=== PATIENT | male | born 1965 | race Caucasian/White ===

== ENCOUNTER 2016-10-04 05:31 | Observation (INO) | payer OTHER ==
[~2016-10-04] VITALS: Ht 177.8 cm; Wt 84.6 kg
--- NOTE | ~2016-10-04 | O ---
[facility] [place] [address] OPERATIVE REPORT Name: SHAHID SIMMONS III Room #: 539-P [facility] Roque Serrano#: [id number] Admission: 10/04/16 Attend Phys: Leno Hayward MD Discharge: 10/05/16 Date of : 63 Report #: [id number] THIS REPORT FOR: //name// CC: Leno Ramos PREOPERATIVE DIAGNOSIS: Incisional hernia. POSTOPERATIVE DIAGNOSIS: Incisional hernia. PROCEDURE PERFORMED: Laparoscopic repair of incisional hernia. ANESTHESIA: General. COMPLICATIONS: None. ESTIMATED BLOOD LOSS: 5 mL. DESCRIPTION OF PROCEDURE: The patient's abdomen was prepped and draped in sterile fashion. IV antibiotic was administered. Abdomen was prepped and draped in sterile fashion. Timeout was performed. A cutdown incision was made in the left abdomen slightly above the umbilicus. This is about 2.5 cm incision. Fascia was identified. It was quite deep. The anterior rectus sheath was opened. A 0 Vicryl suture was placed on the fascia for retraction. The muscle was spread. The posterior sheath was grasped with hemostat. This was also opened under visualization. There is some separation to the peritoneum. The posterior sheath was sutured with 0 Vicryl for retraction. Veress needle was then placed through peritoneum. Abdominal cavity was insufflated by CO2. After creating pneumoperitoneum, 11 mm trocar was placed under visualization. This had a balloon on the end. Two 5 mm trocars were placed in the left abdomen, one in the upper quadrant and one in the lower quadrant. The patient had quite a bit of properitoneal fat. Some of them was even hanging down. This actually obscured the view of the hernia. I started along the right of the inferior edge of the falciform ligament, divided the peritoneum and its properitoneal fat off the wall. I got to the umbilical area. The fascia defect was identified. There were 3 large lobulated properitoneal fat within the hernia. The dissection was inferiorly, creating us room for a 4 x 5 inch Ventralight mesh with ST technology. The mesh was moistened with saline and placed through the 11 mm trocar without difficulty. The balloon tubing was brought out in the mid part of the defect. The echo was inflated. The mesh was tuck up to the abdominal wall and the mesh was tacked with SorbaFix. The camera was changed to the 5 mm scope to allow further tacking. The tack was difficult to place on the left side, the near side through the trocar because of the band and the wall and the tacker, due to the thickness of the fat. Because of this, I placed 2 transfascial sutures at 2 and 4 o'clock position. Transfascial suture was placed at 12 o'clock and then also at the 9 o'clock. The patient has infraumbilical and avoided that with any [facility] [address] [place] [address] OPERATIVE REPORT Name: SHAHID SIMMONS [facility] Room #: 539-P BIRDIE Serrano#: [id number] Admission: 10/04/16 Attend Phys: Leno Hayward MD Discharge: 10/05/16 Date of : 63 Report #: [id number] transfascial suture. Mesh seated well. I did try to tack the fat back up. Because of the thickness there, I could not get the SorbaFix to hold it in place. The trocars were then removed. CO2 was evacuated. The fascia defect of the cutdown site was closed with 0 PDS [id number] x 2, both the posterior sheath and the anterior sheath. Skin was irrigated. Skin was closed with 5-0 PDS. Dermabond was applied. Band-Aids applied. The patient tolerated the procedure well and was taken to recovery room. By: 99 Leno Hayward MD /nt
--- NOTE | ~2016-10-04 | EKG ---
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
[~2016-10-04 05:31] MED LIST: CRESTOR10 MG PO; DAILY VITE1 EACH PO; LEVOTHYROXIN0.125 M1 PO; LISINOPRIL10 MG PO; NORVASC5 M1 PO; PERCOCET PO; PHENYTOIN PO; PHENYTOIN SODI200 MG PO; POTASSIUM CITR15 MEQ PO; POTASSIUM CITRATE PO
[2016-10-04 11:52] LABS: CALCIUM 8.9 mg/dL (8.5-10.1); CREATININE 0.8 mg/dL (0.7-1.3); POTASSIUM 4.3 mmol/L (3.5-5.1)
[2016-10-04 12:00] VITALS: BP 134/84
[2016-10-04 16:54] VITALS: BP 128/67
[2016-10-04 20:00] VITALS: BP 135/92
[2016-10-05] VITALS: BP 132/77
[2016-10-05 04:00] VITALS: BP 140/57
[2016-10-05 08:58] VITALS: BP 121/77
[2016-10-05] MEDS ORDERED: NORCO 5-325 TA1 EACH PO (12:02)
[2016-10-05] MEDS ORDERED: VALIUM5 MG PO (12:04)
[2016-10-05 12:33] VITALS: BP 121/77
[2016-10-05 13:32] VITALS: BP 121/77
== END 2016-10-05 13:35 | disposition home or self-care (01) ==
LOC: TBA 05:31 → OR 05:31 → 5S 15:02 → OR 15:02 → 5S 15:02 → OR 15:52 → 5S 10-05 13:35
PROVIDERS: Anesthesiology
DX: K43.2 Incisional hernia without obstruction or gangrene (principal); K80.10 Calculus of gallbladder with chronic cholecystitis without obstruction; I10 Essential (primary) hypertension; E78.00 Pure hypercholesterolemia, unspecified; Z90.49 Acquired absence of other specified parts of digestive tract; Z87.442 Personal history of urinary calculi
CPT/HCPCS: 50010; 50101; 50249; 50411; 50455; 50555; 50687; 50886; 50979; 53307; 53310; 54022; 54118; 56525; 56526; 56530; 62110; 62900; 70005

== ENCOUNTER → 2017-09-02 | Outpatient (CLI) | payer OTHER ==
[~2017-09-02] MED LIST changes: +NORCO 5-325 TA1 EACH PO; +VALIUM5 MG PO
== END ==
LOC: RAD 11:59
DX: R10.9 Unspecified abdominal pain (principal)

== ENCOUNTER → 2017-09-09 | Outpatient (CLI) | payer OTHER | LOC: ULTRA 07:10 | DX: K76.89 Other specified diseases of liver (principal); Z90.49 Acquired absence of other specified parts of digestive tract ==

== ENCOUNTER → 2018-03-17 | Outpatient (CLI) | payer OTHER | LOC: MRI 07:46 | DX: S83.242A Other tear of medial meniscus, current injury, left knee, initial encounter (principal); S83.282A Other tear of lateral meniscus, current injury, left knee, initial encounter; S86.912A Strain of unspecified muscle(s) and tendon(s) at lower leg level, left leg, initial encounter; M25.462 Effusion, left knee; R60.0 Localized edema; X58.XXXA Exposure to other specified factors, initial encounter; Y93.89 Activity, other specified; Y92.89 Other specified places as the place of occurrence of the external cause; Y99.8 Other external cause status ==

== ENCOUNTER 2018-08-27 19:12 | Inpatient (IN) | payer OTHER ==
[~2018-08-27] VITALS: Ht 177.8 cm; Wt 124.7 kg
--- NOTE | ~2018-08-27 | HC ---
[facility] [place] [address] CONSULTATION Name: SHAHID SIMMONS III Room #: 426-P [facility] IN M.R.#: [id number] Admission: 08/27/18 ������������������ Attend Phys: Anderson Murphy MD Discharge: 08/29/18 ������������������ Date of : 63 Report #: [id number] THIS REPORT FOR: //name// CC: Anderson Muñiz DATE OF SERVICE: 08/29/2018 SURGICAL CONSULTATION: REASON FOR CONSULTATION: Diarrhea, followed by abdominal pain, nausea and vomiting. Possible small-bowel obstruction. HISTORY OF PRESENT ILLNESS: The patient is a 53-year-old who did not feel very well last week. The patient had a low-grade temperature of 100.1. The patient on Tuesday started to have a fairly significant diarrhea. Probably went to the bathroom about 7 times. He finally took Imodium which stopped the diarrhea. He then described pain in the upper abdomen, mid abdomen sharp in nature. He did not have any vomiting until he got into the Emergency Room. The patient vomited a large volume of gastric content. The patient is known to me from prior cholecystectomy, repair of a hernia laparoscopically placed under the umbilical area where his incisional hernia was located. He has not had any problems since then. The patient's CT from 10:00 last night and KUB this morning does look like distended small bowel loops, very small, very minimal air in the colon. There is a small bowel that is decompressed distally. No exact transition point identified, but it is likely in the right portion of the abdomen. The patient has a cyst in the liver, which is seen before. LABORATORY DATA: His white count is 6900 with 25 bands. I do not see lactic acid. His bilirubin is still slightly elevated. His creatinine is 1.3. His BUN is slightly elevated at 19, suggestive of dehydration. Since admission, an NG tube that was placed, which had about 300-400 out, he is feeling a lot better. His nurse and I both went into the room to assess him and he has passed a large gas and had a small bowel movement. Since he did not have any air in his colon on his x-ray, I believe the air must have gotten there since admission. On examination, the patient's abdomen is mildly distended. He is quite obese. There is no tenderness, guarding or rigidity. Bowel sounds are present. His incision has healed well. IMPRESSION AND PLAN: The patient is a 53-year-old with a viral type illness. I am not really sure he has a bowel obstruction, possibly the viral illnesses caused the spasm. He is feeling significantly better at this point. I think he [address] [address] CONSULTATION Name: SHAHID SIMMONS III Room #: 426-P [facility] IN M.R.#: [id number] Admission: 08/27/18 ������������������ Attend Phys: Anderson Murphy MD Discharge: 08/29/18 ������������������ Date of : 63 Report #: [id number] is likely getting over this. His white count is staying normal. His hemoglobin does look a little bit lower like consistent rehydration. I would recommend keeping the NG for now since it was just placed a little over 12 hours ago and see how he does the rest of the night and check KUB in the morning. Possibly remove the NG tube if possibly proceeding with discontinuing NG and starting liquid if he feels better. ��������������������������������������������� ���������������������������������������� By: ��������������������������������������������� [id number] Leno Hayward MD /nt
[2018-08-27 19:12] VITALS: BP 139/85
[2018-08-27 20:08] LABS: HEMATOCRIT 42.4 % (42.0-52.0); HEMOGLOBIN 14.9 gm/dL (14.0-18.0); MCH 31.1 pg (26.0-34.0); MCHC 35.2 g/dL (28.0-37.0); MCV 88.2 fL (80.0-100.0); PLATELET COUNT 199 thou/uL (150-400); RBC 4.81 mil/uL (4.50-6.00); RDW 14.1 % (10.5-14.5); WBC 6.9 thou/uL (4.0-11.0)
[2018-08-27 20:14] LABS: ANION GAP 10 mmol/L (7-16); BUN 19 mg/dL (7-18); CHLORIDE 97 mmol/L (98-107); CO2 25 mmol/L (21-32); GLUCOSE 164 mg/dL (74-106); POTASSIUM 3.9 mmol/L (3.5-5.1); SODIUM 132 mmol/L (136-145)
[2018-08-27 20:23] LABS: ALBUMIN 3.7 g/dL (3.4-5.0); LIPASE 58 U/L (73-393); SGOT 27 U/L (15-37); SGPT 43 U/L (30-65); TOTAL BILIRUBIN 1.4 mg/dL (<0.1-1.0); TROPONIN-I <0.06 ng/mL (<0.06)
[2018-08-27 20:30] LABS: ABSOLUTE NEUTROPHILS 4.8 thou/uL (1.4-8.2)
[2018-08-27 20:31] LABS: LARGE PLATELETS FEW; PLATELET ESTIMATE NORMAL
[2018-08-27 20:32] LABS: POLYCHROMASIA 1+
[2018-08-27 22:00] VITALS: BP 146/84
[2018-08-27] MEDS ORDERED: KEPPRA1000 MG PO (22:14)
[2018-08-27 22:17] VITALS: BP 146/84
[2018-08-27 22:26] LABS: URINE BILIRUBIN NEGATIVE (Negative); URINE BLOOD NEGATIVE (Negative); URINE CLARITY CLEAR; URINE COLOR YELLOW; URINE GLUCOSE-RANDOM* NEGATIVE (Negative); URINE KETONES TRACE (Negative); URINE LEUKOCYTES-REFLEX NEGATIVE (Negative); URINE NITRITE-REFLEX NEGATIVE (Negative); URINE PROTEIN (DIPSTICK) 1+ (Negative); URINE SPECIFIC GRAVITY 1.025 (1.005-1.035)
[2018-08-27 22:39] LABS: BACTERIA-REFLEX 1-9 Few /HPF (None Seen); CASTS None Seen /LPF (None Seen); CRYSTALS None Seen /LPF (None Seen); MUCUS 4-6 Moderate strn/LPF (None Seen); SQUAMOUS 0-3 Few /LPF (0-3); URINE RBC 0-2 Rare /HPF (0-2); URINE WBC-REFLEX 0-5 Rare /HPF (0-5)
[2018-08-27 22:49] VITALS: BP 138/74
[2018-08-28 05:21] VITALS: BP 147/75
[2018-08-28 05:24] LABS: HEMATOCRIT 39.5 % (42.0-52.0); HEMOGLOBIN 13.9 gm/dL (14.0-18.0); MCH 30.9 pg (26.0-34.0); MCHC 35.3 g/dL (28.0-37.0); MCV 87.5 fL (80.0-100.0); PLATELET COUNT 190 thou/uL (150-400); RBC 4.51 mil/uL (4.50-6.00); RDW 14.1 % (10.5-14.5); WBC 5.6 thou/uL (4.0-11.0)
[2018-08-28 05:27] LABS: CALCIUM 8.4 mg/dL (8.5-10.1); CREATININE 0.9 mg/dL (0.7-1.3); POTASSIUM 3.7 mmol/L (3.5-5.1)
[2018-08-28 06:09] LABS: ABSOLUTE NEUTROPHILS 3.4 thou/uL (1.4-8.2); PLATELET ESTIMATE NORMAL
[2018-08-28 06:10] LABS: ANISOCYTOSIS 1+; LARGE PLATELETS FEW; POLYCHROMASIA 1+
--- NOTE | 2018-08-28 06:42 | NUR ---
Arrived from ER around 0. C/o pain in abdomen, pain medication given and worked. Patient vomitted twice, yellow and dark yellow color. Patient voiced that he felt better after the vomitting. NG inserted, patient hopes to get the tube out in the morning. NPO, tolerated well.
--- NOTE | 2018-08-28 08:12 | NUR ---
PT ASSESSED. DENIES ABD PAIN OR NAUSEA. NG IRRIGATED W/ DARK GREEN OUTPUT W/ SEDIMENT. DR. ROBBINS CONSULTED MR. SIMMONS IS FORMER PT. RESTING COMFORTABLY.
[2018-08-28 08:28] VITALS: BP 135/81
--- NOTE | 2018-08-28 09:05 | EKG ---
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 : 1965 Requested By: Florian Klein Order Number: [id number] MD: Rizwan Landaverde Measurements Intervals [place] Rate: 82 P: 34 WI: 142 QRS: 53 QRSD: 103 T: 22 QT: 366 QTc: 428 Interpretive Statements Sinus rhythm No significant abnormality Compared to ECG 10/04/2016 11:56:23 No significant changes Electronically Signed On 08-28-2018 9:05:05 CDT by Rizwan Landaverde [email or web address] ��������������������������������������������� <ELECTRONICALLY SIGNED> ���������������������������������������� By: Rizwan Landaverde MD, [facility] ��������������������������������������������� 08/28/18904 18 18 Rizwan Landaverde MD, FAC /EPI
[2018-08-28 16:36] VITALS: BP 134/64
--- NOTE | 2018-08-28 17:18 | NUR ---
PT ADMITTED RELATED TO SBO. CM REVIEWED CHART AND SPOKE WITH CARE TEAM. CM MET WITH PT AT BEDSIDE THIS DAY. PT IS A&O X4. CM ROLE INTRODUCED. PT INDICATED HE LIVES IN A HOUSE WITH 2 STEPS TO ENTER AND NO STEPS HE USES INSIDE. 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 PT INDICATED NO DME OR HH HX. PT INDICATED HE PLANS TO RETURN HOME ONCE MEDICALLY STABLE. CM TO FOLLOW INDICATED WITH DC PLANNING.
--- NOTE | 2018-08-28 18:30 | NUR ---
PT ASSESSED AT START OF SHIFT. NG IRRIGATED W/ LARGE AMTS OF DARK GREEN OUTPUT W/ SEDIMENT. ABD DISTENDED BUT SOFT. PT STARTED PASSING FLATUS EARLY AM AND THROUGHOUT THE DAY AND HAD SEVERAL LOOSE BM'S. DR. ROBBINS HERE THIS AFTERNOON AND UPDATED W/ EVENTS. PT ALLOWED TO EAT ICE CHIPS SOME. WILL HAVE REPEAT ABD XRAY IN THE AM. PT AMBULATING HALLS AND DOING WELL.
[2018-08-28 19:38] VITALS: BP 150/83
[2018-08-29] VITALS: BP 134/72
--- NOTE | 2018-08-29 02:01 | NUR ---
Assume care of pt at 1900. Pt alert and oriented x4. NG tube in place at start of shift. Connected to low intermittent suction and irrigated. Pt accidentally pulled out NG tube in his sleep. INSURANCE AND BENEFITS CLERK on duty notified. States to keep NG out and wait for results of abd xray/KUB in am. Pt passing gas. Up ad bria. No c/o pain. Call light within reach. Will continue to monitor and assist with needs.
[2018-08-29 05:05] VITALS: BP 134/72; BP 197/95
[2018-08-29 05:55] VITALS: BP 134/84
[2018-08-29 06:19] LABS: HEMATOCRIT 37.6 % (42.0-52.0); HEMOGLOBIN 12.9 gm/dL (14.0-18.0); MCH 30.6 pg (26.0-34.0); MCHC 34.4 g/dL (28.0-37.0); RBC 4.22 mil/uL (4.50-6.00); WBC 6.1 thou/uL (4.0-11.0)
[2018-08-29 06:38] LABS: CALCIUM 8.4 mg/dL (8.5-10.1); CREATININE 1.1 mg/dL (0.7-1.3); POTASSIUM 3.7 mmol/L (3.5-5.1)
[2018-08-29 08:15] VITALS: BP 120/71
--- NOTE | 2018-08-29 11:41 | NUR ---
Assumed pt care at 7am.Pt up adlib in the room and hallways with steady gait. Assessment completed.vss.Pt has bm early this shift and wanted to know if he can eat.Rn told pt it will be up to Dr Hayward when he rounded on pt later today. kub done and it still shows sbo.Dr Jeffrey Hayward here,order noted.Clear liq ordered.Pt will be dc home later this evening if no further c/o.Will continue to monitor.
[2018-08-29 16:07] VITALS: BP 120/71
== END 2018-08-29 17:58 | disposition home or self-care (01) | DRG 389 ==
LOC: ER 19:12 → 4E 21:53 → EROBS 21:53 → 4E 22:25 → ENTRNSPT 08-29 16:35 → 4E 08-29 17:58
PROVIDERS: Emergency Medicine; ADMIT Hospitalist
PROC: 0D9670Z Drainage of Stomach with Drainage Device, Via Natural or Artificial Opening (ICD-10-PCS; principal; 2018-08-27)
DX: K56.690 Other partial intestinal obstruction (principal); E87.1 Hypo-osmolality and hyponatremia; D72.825 Bandemia; G40.909 Epilepsy, unspecified, not intractable, without status epilepticus; G47.33 Obstructive sleep apnea (adult) (pediatric); I10 Essential (primary) hypertension; Z90.49 Acquired absence of other specified parts of digestive tract; Z79.1 Long term (current) use of non-steroidal anti-inflammatories (NSAID); Z79.899 Other long term (current) drug therapy; Z82.49 Family history of ischemic heart disease and other diseases of the circulatory system
CPT/HCPCS: 10084

== ENCOUNTER 2018-09-01 13:02 | Inpatient (IN) | payer OTHER ==
[~2018-09-01] VITALS: Ht 177.8 cm; Wt 123.8 kg
--- NOTE | ~2018-09-01 | O ---
[facility] [place] [address] OPERATIVE REPORT Name: SHAHID SIMMONS ROSI Room #: 349-I ADM IN M.R.#: [id number] Admission: 09/01/18 ������������������ Attend Phys: Emmanuel Serna Discharge: ������������������ Date of : 63 Report #: [id number] THIS REPORT FOR: //name// CC: Emmanuel Ramos DATE OF SERVICE: 09/03/2018 REASON FOR PROCEDURE: Partial small-bowel obstruction. POSTOPERATIVE DIAGNOSES: Adhesions of omentum to the sigmoid colon, mesenteric adhesion of the distal ileum, no definite site of obstruction identified. Segmental small bowel inflammation. Diverticular disease. PROCEDURES PERFORMED: Diagnostic laparoscopy with lysis of adhesion. ANESTHESIA: General anesthesia. COMPLICATIONS: None. ESTIMATED BLOOD LOSS: 15 mL. PROCEDURE NOTE: With the patient under general anesthesia, abdomen was shaved, prepped and draped in sterile fashion. Timeout was performed. The patient did receive preoperative Zosyn. A cutdown incision was made in the left upper quadrant close to the midline. The anterior fascia was identified, opened under visualization. A 0 Vicryl suture was placed on the anterior fascia for retraction. The muscle was spread with hemostat. Posterior fascia was then identified, grasped with hemostat. The fascia was opened. The peritoneum was still a little bit deeper. A 0 Vicryl suture placed on the fascia edges. Veress needle was then placed through the peritoneum. Abdominal cavity was insufflated with CO2. I can tell that the CO2 was being started without difficulty. After creating pneumoperitoneum, 11 mm balloon trocar was then placed through the peritoneum. The balloon was inflated and laparoscope was placed. The trocar was in the correct position intra-abdominally. There was adhesion in the mid abdomen and omentum. Two 5 mm trocars were placed in the right upper abdomen. The adhesions were taken down with Harmonic scalpel. The adhesion became denser right under the umbilicus where the hernia mesh was sitting. There was no bowel stuck to the abdominal wall. I did find 2 omental adhesions band going down to the left lower quadrant attaching to the sigmoid colon, which has evidence of diverticulosis and some fibrosis, likely chronic diverticulitis. No abscess or fluid around the colon. The cecum was identified. The small bowel was identified. The distal small bowel was more decompressed in the proximal, but not dramatically. The small bowel was followed from the ligament of Treitz proximally. About 6 inches, the small bowel has a slight bend to it and looking at the mesentery medially, the [address] [address] OPERATIVE REPORT Name: SHAHID SIMMONS [facility] Room #: 349-I ADM IN M.R.#: [id number] Admission: 09/01/18 ������������������ Attend Phys: Emmanuel Serna Discharge: ������������������ Date of : 63 Report #: [id number] mesentery was adhesed to each other. The mesenteric adhesion was divided. There was no vessel that was injured. This did allow the small bowel to be in a straight manner. The adhesion did not cause the small bowel to be obstructed in my opinion. It did not look like it caused the small bowel to be kinked enough to cause obstruction. Small bowel was then followed proximally and it came up to the right upper quadrant. There was about a 6-inch segment and the small bowel is reddish appearing, but there was no adhesion to the small bowel. The small bowel was not incarcerated and any internal hernia. Small bowel was then followed proximally and then when it came down into the pelvis and then it gradually moved from there to the left lower quadrant and then followed up to the left upper quadrant where I think I am looking at the proximal jejunum at the ligament of Treitz area. The bowel was then re-examined backwards from the proximal bowel to the terminal ileum again following it gradually, following it little by little. Again, no definitive small bowel obstruction identified. Irrigation was then performed. Irrigation was aspirated out. The omental adhesion down to the sigmoid colon was divided and then I resected part of the little tongue of the omentum to prevent it from resticking. This fatty omental band was removed through the 5 mm trocar. The patient was awakened and taken to recovery room. At this point, I will go ahead and leave the NG tube. The patient tolerated the procedure well. ��������������������������������������������� ���������������������������������������� By: ��������������������������������������������� [id number] Leno Hayward MD /nt
[~2018-09-01 13:02] MED LIST changes: +KEPPRA1000 MG PO
[2018-09-01 13:03] VITALS: BP 138/82
--- NOTE | 2018-09-01 13:09 | NUR ---
PT HAD TO USE THE BATHROOM. PT AMBULATED TO BATHROOM WITH STEADY GAIT. THIS IS PRIOR TO ROOM PLACEMENT.
[2018-09-01 13:33] LABS: URINE BILIRUBIN NEGATIVE (Negative); URINE BLOOD NEGATIVE (Negative); URINE CLARITY CLEAR; URINE COLOR YELLOW; URINE GLUCOSE-RANDOM* NEGATIVE (Negative); URINE KETONES NEGATIVE (Negative); URINE LEUKOCYTES-REFLEX NEGATIVE (Negative); URINE NITRITE-REFLEX NEGATIVE (Negative); URINE PROTEIN (DIPSTICK) NEGATIVE (Negative); URINE SPECIFIC GRAVITY >= 1.030 (1.005-1.035); URINE UROBILINOGEN 0.2 E.U./dl (0.2-1.0)
[2018-09-01 13:55] LABS: HEMATOCRIT 43.1 % (42.0-52.0); HEMOGLOBIN 15.1 gm/dL (14.0-18.0); MCH 30.8 pg (26.0-34.0); MCV 87.9 fL (80.0-100.0); PLATELET COUNT 309 thou/uL (150-400); RDW 13.6 % (10.5-14.5); WBC 11.2 thou/uL (4.0-11.0)
[2018-09-01 14:07] LABS: CALCIUM 9.4 mg/dL (8.5-10.1); CREATININE 0.9 mg/dL (0.7-1.3); POTASSIUM 4.3 mmol/L (3.5-5.1)
[2018-09-01 14:14] LABS: ALBUMIN 3.8 g/dL (3.4-5.0); TOTAL BILIRUBIN 0.9 mg/dL (<0.1-1.0); TOTAL PROTEIN 7.9 g/dL (6.4-8.2)
[2018-09-01 15:34] LABS: ABSOLUTE NEUTROPHILS 7.4 thou/uL (1.4-8.2); ANISOCYTOSIS 1+; METAMYELOCYTES 1 %
[2018-09-01 16:33] VITALS: BP 138/73
[2018-09-01 16:44] VITALS: BP 135/91
[2018-09-01 16:57] VITALS: BP 153/88
--- NOTE | 2018-09-01 18:56 | NUR ---
PATIENT ADMITTED TO ROOM AT THIS TIME.HE IS ALERT ORIENTED X4. DENIES COMPLAIN OF PAIN OR DISTRESS. BLOATED ABDOMEN. DIARRHEAL STOOLS YESTERDAY AND THIS MORNIGN. NOW SLEEPING AND RESPIRATIONS ARE NON LABORED. WILL CONT WITH PLAN OF CARE.
[2018-09-01 19:25] VITALS: BP 125/90
[2018-09-02 04:05] VITALS: BP 120/74
--- NOTE | 2018-09-02 05:27 | NUR ---
Pt. ambulated around hallway several times last night with steady gait. Requested pain med initially but declined after using the bathroom stating that bloating/pressure feeling in his abdomen is gone after he had a large liquid stool. Kept NPO per order. No nausea or vomiting. Voided per urinal. Making progress towards care plan goals.
[2018-09-02 07:12] VITALS: BP 108/81
[2018-09-02 11:23] LABS: ALBUMIN 3.6 g/dL (3.4-5.0); CALCIUM 9.2 mg/dL (8.5-10.1); CREATININE 0.9 mg/dL (0.7-1.3); TOTAL BILIRUBIN 1.4 mg/dL (<0.1-1.0); TOTAL PROTEIN 7.7 g/dL (6.4-8.2)
[2018-09-02 15:52] VITALS: BP 126/83
--- NOTE | 2018-09-02 19:21 | NUR ---
NEW NG TUBE PLACED BY HE TOLERATED. FOR THE FIRST FOUR HOURS ONLY CLEAR LIQUID WAS NOTED THEN EVENTUALLY BECAME DARK GREEN. HE AMBULATES ABOUT FACILITY WITH MINIMAL ASSIST. WILL CONT WITH PLAN OF CARE.
[2018-09-02 19:45] VITALS: BP 139/86
[2018-09-03] VITALS (8 sets, daily range): BP systolic 117–146; BP diastolic 71–93
--- NOTE | 2018-09-03 04:07 | NUR ---
Slept some but not much per pt. due to NG tube. Abdominal discomfort at HS relieved by scheduled pepcid. Denies need for pain med , stated no abdominal pain just the tube being in his nose. Kept NPO and gave ice chips sparingly. No nausea or vomiting. NG had 700 ml out this shift ( brown yellow to clear then mostly yellowish this am). Ambulates in hallway when awake. Will continue to monitor.
[2018-09-03 06:06] LABS: HEMATOCRIT 41.3 % (42.0-52.0); HEMOGLOBIN 14.3 gm/dL (14.0-18.0); MCHC 34.6 g/dL (28.0-37.0); MCV 89.4 fL (80.0-100.0); RBC 4.62 mil/uL (4.50-6.00); RDW 13.7 % (10.5-14.5); WBC 9.5 thou/uL (4.0-11.0)
[2018-09-03 06:18] LABS: CALCIUM 8.7 mg/dL (8.5-10.1); CREATININE 0.8 mg/dL (0.7-1.3); POTASSIUM 3.8 mmol/L (3.5-5.1)
--- NOTE | 2018-09-03 16:19 | NUR ---
PATIENT CONT ON IV ABT AND NO ADVERSE REACTION NOTED AT THIS TIME. RESPIRATIONS ARE NON LABORED. FAMILY IN ROOM AND HAS ASSIST WITH SOME CARE. DIET DOWNGRADED TO MECHANICAL CHOP HE WAS HAVING A LOT OF DIFFICULTIES SWALLOWING OR CHEWING HIS MEAT. HE HAS SLEPT MOST OF THE DAY. WILL CONT WITH PLAN OF CARE.
--- NOTE | 2018-09-03 17:03 | NUR ---
PATIENT RETURNED FROM SURGERY AT THIS TIME. NO COMPLAIN OF PAIN NOTED. RESPIRATIONS ARE NON LABORED. HE IS ON ROOM AIR. NG TUBE RESUMED AND IV RESUMED. ALERT ORIENTED X4. BEDREST AT THIS TIME. WILL CONT WITH PLAN OF CARE.
[2018-09-04 04:55] VITALS: BP 145/82
--- NOTE | 2018-09-04 04:57 | NUR ---
ASSUMED PT CARE AROUND 1900. A&OX4. VERY PLEASANT AND COOPERATIVE. DENIES ANY PAIN OR N/V. PT SLEPT PART OF THE NIGHT. HE TOOK A COUPLE WALKS AROUND THE UNIT. TOLERATED WELL. NGT TO LIS. LAPROSCOPIC SITES TO ABDOMENT C/D/I. VSS. PT STATES HE IS PASSING SOME FLATUS THIS MORNING. NO BOWEL MOVEMENT YET. PRORGRESSING SLOWLY TOWARD POC GOALS. WILL CONTINUE TO MONITOR FURTHER.
[2018-09-04 05:43] LABS: HEMOGLOBIN 12.7 gm/dL (14.0-18.0); MCH 30.8 pg (26.0-34.0); MCHC 34.4 g/dL (28.0-37.0); MCV 89.4 fL (80.0-100.0); RBC 4.14 mil/uL (4.50-6.00); RDW 13.9 % (10.5-14.5); WBC 11.3 thou/uL (4.0-11.0)
[2018-09-04 06:00] LABS: CALCIUM 8.6 mg/dL (8.5-10.1); CREATININE 0.9 mg/dL (0.7-1.3); POTASSIUM 3.7 mmol/L (3.5-5.1)
[2018-09-04 07:12] VITALS: BP 147/86
--- NOTE | 2018-09-04 10:37 | NUR ---
ASSESSMENT: CM REVIEWED CHART AND MET WITH PATIENT AT THE BEDSIDE. PT IS ALERT AND ORIENTED X4. PT REPORTS HE LIVES IN A HOUSE WITH HIS . PT REPORTS BEING FULLY INDEPENDENT WITH ADLS AND AMBULATION. PT DENIES HAVING ANY DME. PT REPORTS THAT HE HAS NOT HAD HH IN THE PAST NOR BEEN TO A SNF/POST URE CARE FACILITY. PT WAS ADMITTED FOR POSSIBLE SBO. NO OBSTRUCTION WAS FOUND. PT CURRENTLY HAS NG WHICH IS BEING CLAMPED AND PATIENT WILL START ON CLEAR LIQUIDS. PT REPORTS HAVING A CPAP AT HOME. PT REPORTS HE WILL HAVE NO NEEDS FROM CM. CM WILL CONTINUTE TO FOLLOW.
[2018-09-04 15:35] VITALS: BP 138/92
--- NOTE | 2018-09-04 15:40 | NUR ---
NG TUBE CLAMPED BY DR ROBBINS THIS AM. WILL CONT TO MONITOR PATIENT FOR INCREASED ABDOMINAL PAIN, INCREASED NAUSEA, AND BOWEL MOVEMENTS. HE DID HAVE ONE LOOSE BM, MOSTLY WATER WITH A FEW SUSPENDED SOLIDS. HE IS ALERT ORIENTED X4. BOWEL SOUNDS HEARD ALL QUADRANTS. INCISION TO ABDOMEN REMAIN CLEAN AND INTACT. WILL CNOT WITH PLAN OF CARE.
[2018-09-04 19:07] VITALS: BP 134/87
--- NOTE | 2018-09-05 03:04 | NUR ---
ASSUMED PT CARE AROUND 1900. A&OX4. DENIES ANY ABDOMINAL PAIN OR N/V. TOLERATED CLEAR LIQUID DIET. PT REPORTS HAVING SOME LOOSE STOOLS. C/O HEADACHE. TYLENOL GIVEN. UP AD FLORIAN AROUND THE ROOM. PT RESTING IN BED AT THIS TIME. PROGRESSING TOWARD POC GOALS. WILL CONTINUE TO MONITOR FURTHER.
[2018-09-05 04:13] VITALS: BP 128/88
[2018-09-05 06:48] VITALS: BP 118/81
[2018-09-05 14:32] VITALS: BP 118/81
--- NOTE | 2018-09-05 15:35 | NUR ---
PATIENT DISCHARGED HOME AT THIS TIME. HE WALKED WITH SON TO PRIVATE CARE. NO COMPLAIN OF PAIN AT THIS TIME. HE HAS HAD LOOSE BOWEL MOVEMENTS HAS DENIES ADDITIONAL BLOATING, FULLNESS OR DISTRESS.
== END 2018-09-05 15:13 | disposition home or self-care (01) | DRG 337 ==
LOC: ER 13:02 → EROBS 15:51 → 3W 15:51
PROVIDERS: Emergency Medicine; Nurse Practitioner Family; Surgery; ADMIT Hospitalist
DX: K56.51 Intestinal adhesions [bands], with partial obstruction (principal); I10 Essential (primary) hypertension; E78.00 Pure hypercholesterolemia, unspecified; E03.9 Hypothyroidism, unspecified; G47.33 Obstructive sleep apnea (adult) (pediatric); N20.0 Calculus of kidney; E78.5 Hyperlipidemia, unspecified; K57.30 Diverticulosis of large intestine without perforation or abscess without bleeding; K56.7 Ileus, unspecified; K52.9 Noninfective gastroenteritis and colitis, unspecified; Z90.49 Acquired absence of other specified parts of digestive tract; Z82.49 Family history of ischemic heart disease and other diseases of the circulatory system; Z79.899 Other long term (current) drug therapy
CPT/HCPCS: 10080; 50010; 50101; 50249; 50386; 50417; 50445; 50555; 51489; 53065; 53307; 53310; 53335; 56462; 56524; 56525; 56526; 62110; 62900; 70005

== ENCOUNTER → 2019-03-13 | Outpatient (CLI) | payer OTHER | LOC: CAT 15:57 | DX: Z13.6 Encounter for screening for cardiovascular disorders (principal); E78.00 Pure hypercholesterolemia, unspecified; I25.10 Atherosclerotic heart disease of native coronary artery without angina pectoris ==

== ENCOUNTER 2020-12-12 08:51 | Emergency (ER) | payer OTHER ==
[~2020-12-12] VITALS: Ht 177.8 cm; Wt 133.8 kg
[2020-12-12 09:52] LABS: ABSOLUTE NEUTROPHILS 8.3 thou/uL (1.4-8.2); BASOPHILS 0.4 % (0.0-2.0); EOSINOPHILS 0.2 % (0.0-3.0); HEMATOCRIT 41.2 % (42.0-52.0); HEMOGLOBIN 14.3 gm/dL (14.0-18.0); MCH 31.7 pg (26.0-34.0); MCHC 34.6 g/dL (28.0-37.0); MCV 91.6 fL (80.0-100.0); MONOCYTES 8.8 % (1.0-8.0); PLATELET COUNT 233 thou/uL (150-400); POLYS 76.6 % (36.0-66.0); RDW 13.2 % (10.5-14.5); WBC 10.8 thou/uL (4.0-11.0)
[2020-12-12 10:01] LABS: CALCIUM 9.6 mg/dL (8.5-10.1); CREATININE 1.5 mg/dL (0.7-1.3)
[2020-12-12 10:06] LABS: ALBUMIN 4.3 g/dL (3.4-5.0); DIRECT BILIRUBIN 0.3 mg/dL (<0.1-0.2); TOTAL BILIRUBIN 1.8 mg/dL (0.2-1.0); TOTAL PROTEIN 8.4 g/dL (6.4-8.2)
[2020-12-12 13:25] LABS: URINE BILIRUBIN NEGATIVE (Negative); URINE BLOOD TRACE (Negative); URINE CLARITY CLEAR; URINE COLOR YELLOW; URINE GLUCOSE-RANDOM* NEGATIVE (Negative); URINE KETONES NEGATIVE (Negative); URINE LEUKOCYTES-REFLEX NEGATIVE (Negative); URINE NITRITE-REFLEX NEGATIVE (Negative); URINE PROTEIN (DIPSTICK) NEGATIVE (Negative); URINE UROBILINOGEN 0.2 E.U./dl (0.2-1.0)
[2020-12-12] MEDS ORDERED: FLOMAX0.4 MG PO (13:59)
[2020-12-12] MEDS ORDERED: NORCO5 PO (13:59)
[2020-12-12] MEDS ORDERED: ZOFRAN ODT4 MG PO (13:59)
[2020-12-12 14:23] VITALS: BP 123/71
== END 2020-12-12 14:25 | disposition home or self-care (01) ==
LOC: ER 08:51
PROVIDERS: Emergency Medicine
DX: N23 Unspecified renal colic (principal); I10 Essential (primary) hypertension; E78.00 Pure hypercholesterolemia, unspecified; E03.9 Hypothyroidism, unspecified; Z87.442 Personal history of urinary calculi; Z90.49 Acquired absence of other specified parts of digestive tract; Z79.899 Other long term (current) drug therapy; Z98.890 Other specified postprocedural states